=== PATIENT | male | born 1970 | race Caucasian/White ===

== ENCOUNTER → 2018-01-05 | Outpatient (REF) | payer OTHER ==
[2018-01-05 13:06] LABS: BASO % 0.4 % (0.0-1.0); EOS # 0.2 10^3/uL (0.0-0.50); EOS % 2.7 % (0.0-3.0); HEMATOCRIT 50.4 % (42.0-52.0); HEMOGLOBIN 16.9 g/dl (13.5-17.5); IMMATURE GRANULOCYTE % 0.4 % (0-3.0); LYMPH % 28.6 % (24.0-44.0); MEAN CORPUSCULAR HGB CONC 33.5 g/dl (32.0-36.5); MEAN CORPUSCULAR VOLUME 89.5 fl (80.0-96.0); MONO # 0.6 10^3/uL (0.0-0.8); MONO % 8.5 % (0.0-5.0); NEUTROPHILS # 4.1 10^3/uL (1.8-7.7); NEUTROPHILS % 59.4 % (36.0-66.0); PLATELET COUNT, AUTOMATED 189 10^3/uL (150-450); RED BLOOD COUNT 5.63 10^6/uL (4.30-6.10); RED CELL DISTRIBUTION WIDTH 13.4 % (11.5-14.5)
[2018-01-05 13:43] LABS: ALBUMIN 4.2 GM/DL (3.2-5.2); ALBUMIN/GLOBULIN RATIO 1.11 (1.00-1.93); ALKALINE PHOSPHATASE 56 U/L (45-117); ALT/SGPT 50 U/L (12-78); ANION GAP 11 MEQ/L (8-16); AST/SGOT 22 U/L (7-37); BILIRUBIN,TOTAL 0.7 MG/DL (0.2-1.0); BLOOD UREA NITROGEN 17 MG/DL (7-18); CALCIUM LEVEL 9.3 MG/DL (8.5-10.1); CARBON DIOXIDE LEVEL 26 MEQ/L (21-32); CHLORIDE LEVEL 108 MEQ/L (98-107); FREE T4 0.83 NG/DL (0.76-1.46); GLOMERULAR FILTRATION RATE > 60.0 (>60); GLUCOSE, FASTING 91 MG/DL (70-100); POTASSIUM SERUM 4.8 MEQ/L (3.5-5.1); SODIUM LEVEL 145 MEQ/L (136-145)
== END ==
LOC: M SFHCADAM 08:14
DX: I10 Essential (primary) hypertension (principal)

== ENCOUNTER 2018-01-27 16:06 | Emergency (ER) | payer OTHER ==
[2018-01-27] MEDS: NS 1,000 ML IV (18:14)
[2018-01-27 18:31] LABS: INR 1.01; PROTHROMBIN TIME 13.4 SECONDS (12.1-14.4)
[2018-01-27 18:32] LABS: PARTIAL THROMBOPLASTIN TIME 29.6 SECONDS (25.4-37.6)
[2018-01-27 18:40] LABS: BASO % 0.4 % (0.0-1.0); EOS # 0.1 10^3/uL (0.0-0.50); EOS % 0.7 % (0.0-3.0); HEMATOCRIT 49.6 % (42.0-52.0); HEMOGLOBIN 16.8 g/dl (13.5-17.5); IMMATURE GRANULOCYTE % 0.5 % (0-3.0); LYMPH # 1.2 10^3/uL (1.5-4.5); LYMPH % 11.4 % (24.0-44.0); MEAN CORPUSCULAR HEMOGLOBIN 29.6 pg (27.0-33.0); MEAN CORPUSCULAR HGB CONC 33.9 g/dl (32.0-36.5); MEAN CORPUSCULAR VOLUME 87.3 fl (80.0-96.0); MONO # 0.6 10^3/uL (0.0-0.8); MONO % 5.3 % (0.0-5.0); NEUTROPHILS # 8.6 10^3/uL (1.8-7.7); NEUTROPHILS % 81.7 % (36.0-66.0); PLATELET COUNT, AUTOMATED 217 10^3/uL (150-450); RED BLOOD COUNT 5.68 10^6/uL (4.30-6.10); RED CELL DISTRIBUTION WIDTH 13.2 % (11.5-14.5); WHITE BLOOD COUNT 10.6 10^3/uL (4.0-10.0)
[2018-01-27 18:51] LABS: ANION GAP 10 MEQ/L (8-16); BLOOD UREA NITROGEN 15 MG/DL (7-18); CALCIUM LEVEL 8.9 MG/DL (8.5-10.1); CARBON DIOXIDE LEVEL 22 MEQ/L (21-32); CHLORIDE LEVEL 109 MEQ/L (98-107); CPK CREATINE PHOSPHOKINASE 209 U/L (39-308); CREATININE FOR GFR 1.22 MG/DL (0.70-1.30); FREE T4 0.92 NG/DL (0.76-1.46); GLOMERULAR FILTRATION RATE > 60.0 (>60); GLUCOSE, FASTING 108 MG/DL (70-100); MAGNESIUM LEVEL 2.2 MG/DL (1.8-2.4); POTASSIUM SERUM 4.2 MEQ/L (3.5-5.1); SODIUM LEVEL 141 MEQ/L (136-145); TROPONIN I < 0.02 NG/ML (< 0.10)
== END 2018-01-27 19:31 | disposition home or self-care (01) ==
LOC: M ED 16:06
DX: R42 Dizziness and giddiness (principal); G89.29 Other chronic pain; M54.9 Dorsalgia, unspecified; M54.2 Cervicalgia; F41.9 Anxiety disorder, unspecified; J30.2 Other seasonal allergic rhinitis; Z79.899 Other long term (current) drug therapy
CPT/HCPCS: 71045

== ENCOUNTER 2018-07-27 12:12 | Emergency (ER) | payer OTHER ==
[~2018-07-27] VITALS: Ht 188 cm; Wt 109.1 kg
[~2018-07-27 12:12] MED LIST: SERT-141 PO
[2018-07-27] MEDS ORDERED: VENL75TA2 PO (12:29)
[2018-07-27] MEDS ORDERED: CYCLOBENZAPRINE 10 MG TAB PO ONE (13:30)
[2018-07-27] MEDS ORDERED: KETOROLAC 60 MG/2 ML VIAL (J1885) IM ONE (13:30)
[2018-07-27] MEDS ORDERED: NAPR500T6 PO (14:16)
[2018-07-27] MEDS ORDERED: CYCL10TA PO (14:16)
[2018-07-27 14:25] VITALS: BP 142/97
== END 2018-07-27 14:26 | disposition home or self-care (01) ==
LOC: M ED 12:12
DX: M62.830 Muscle spasm of back (principal); M50.30 Other cervical disc degeneration, unspecified cervical region; M25.511 Pain in right shoulder; F41.9 Anxiety disorder, unspecified; F32.9 Major depressive disorder, single episode, unspecified; Z79.899 Other long term (current) drug therapy
CPT/HCPCS: 96372; 99283; J1885

== ENCOUNTER → 2018-08-07 | Outpatient (REF) | payer OTHER ==
[~2018-08-07] MED LIST changes: +CYCL10TA PO; +NAPR500T6 PO; +VENL75TA2 PO
[2018-08-07 14:14] LABS: CHOLESTEROL RISK RATIO 5.236 (<5)
== END ==
LOC: M SFHCADAM 07:53
PROVIDERS: ATTEND Family Medicine
DX: R07.89 Other chest pain (principal)

== ENCOUNTER → 2018-08-17 | Outpatient (CLI) | payer OTHER ==
--- NOTE | 2018-08-18 02:34 | REP ---
Clinical: Left shoulder pain. Technique: Internal rotation, external rotation, and Y view of the left shoulder. Findings: Blunting of the ossified glenoid rim suggest mild age-related degenerative change. The acromioclavicular joint is normal. The subacromial space is normal. The surrounding soft tissues are unremarkable. Impression: Mild early degenerative changes at the glenohumeral joint suggested. Electronically Signed by Chapo Hanna MD 08/18/2018 02:25 A
== END ==
LOC: M ADAMS 10:45
PROVIDERS: ATTEND Family Medicine
DX: M25.512 Pain in left shoulder (principal)